=== PATIENT | male | born 1955 | race Caucasian/White ===

== ENCOUNTER 2018-04-25 09:26 | Day surgery (SDC) | payer BC ==
[~2018-04-25] VITALS: Ht 170.2 cm; Wt 72.2 kg
[2018-04-25] VITALS (21 sets, daily range): BP systolic 115–147; BP diastolic 70–90; PULSE 52–86; RESP 7–20; Ht 170.2 cm; Wt 72.2 kg
[~2018-04-25 09:26] MED LIST: BUPIVACAINE 0.25% (MPF) 30 ML INJ INJ ONE; CEFAZOLIN 2 GM/50 ML (PMX) 50 ML IVPB ONE; POLYMYXIN/BACITRACIN 1L IRRIG IRR ONE; SOD CHLORIDE 0.9% 1,000 ML IV SCH
[2018-04-25] MEDS ORDERED: CEFAZOLIN 1 GM INJ ONE ×2 (11:30→14:18)
[2018-04-25] MEDS ORDERED: SEVOFLURANE 15 MIN ONE ×2 (11:30→14:17)
[2018-04-25] MEDS ORDERED: EPHEDrine SULFATE 50 MG/5 ML SYG ONE (11:30)
--- NOTE | 2018-04-25 12:57 | PREAC ---
Date/Time of Note Date/Time of Note DATE: 04/25/18 TIME: 12:56 Anesthesia Eval and Record Evaluation Time Pre-Procedure Interview DATE: 04/25/18 TIME: 12:56 Age 63 Sex male NPO: 8 hrs Preoperative diagnosis right inguinal hernia Planned procedure open right inguinal hernia repair Past Medical History Past Medical History: None Surgery & Anesthesia Issues No known issue Meds Anticoagulation: No Beta Reza within 24 hr: No Reason Beta Reza not given: Pt. not on B-Reza No Active Prescriptions or Reported Meds Current Medications Sodium Chloride 1,000 ml @ 75 mls/hr [id number] IV ; Start 04/25/18 at 07:00 Meds reviewed: Yes Allergies Coded Allergies: No Known Allergy (Unverified , 04/25/18) Allergies Reviewed: Yes Labs/Studies Labs Reviewed: Reviewed by anesthesiologist test: N/A Pre-procedure Exam Last vitals Vital Signs Date Temp Pulse Resp B/P (MAP) Pulse Ox O2 O2 Flow FiO2 Time Delivery Rate 04/25/18 98.6 66 16 133/83 97 Room Air 11:25 (100) Airway: Adequate mouth opening, Adequate thyromental dist Mallampati: Mallampati II Teeth: Normal Lung: Normal Heart: Normal ASA Physical Status ASA physical status: 1 Emergency: None Planned Anesthetic General/MAC: ETT Nerve block: TAP (right) Planned Pain Management Single shot nerve block, Parenteral pain med Pre-operative Attestations Prior to commencing anesthesia and surgery, the patient was re-evaluated, there was verification of: *The patient's identity *The results of appropriate recent lab work and preoperative vital signs *The above evaluation not changing prior to induction *Anesthetic plan, risk benefits, alternative and complications discussed with patient/family; questions answered; patient/family understands, accepts and wishes to proceed. MELISSA GIL MD Apr 25, 2018 12:57
[2018-04-25] MEDS ORDERED: MEPERIDINE 25 MG INJ IV PRN (13:00)
[2018-04-25] MEDS ORDERED: HYDROmorphONE 1 MG/5 ML IV SYRINGE IV PRN ×3 (13:00)
[2018-04-25] MEDS ORDERED: LABETALOL HCL 20MG INJ IV PRN (13:00)
[2018-04-25] MEDS ORDERED: PROCHLORPERAZINE 10 MG INJ IV PRN (13:00)
[2018-04-25] MEDS ORDERED: ONDANSETRON 4 MG INJ IV PRN (13:00)
[2018-04-25] MEDS ORDERED: OXYCODONE/ACETAMINOPHEN (5/325) TAB PO PRN (13:00)
[2018-04-25] MEDS ORDERED: EPHEDrine SULFATE 50 MG/5 ML SYG IV PRN (13:00)
[2018-04-25] MEDS ORDERED: FENTAnyl 50 MCG/ML VIAL IV PRN ×3 (13:00)
[2018-04-25] MEDS ORDERED: hydrALAzine 20 MG INJ IV PRN (13:00)
[2018-04-25] MEDS ORDERED: DIPHENHYDRAMINE 50 MG INJ IV PRN (13:00)
[2018-04-25] MEDS ORDERED: FENTAnyl 50 MCG/ML VIAL ONE (14:02)
[2018-04-25] MEDS ORDERED: LIDOCAINE 2% (SDV) 5 ML INJ ONE (14:02)
[2018-04-25] MEDS ORDERED: PROPOFOL 20 ML ONE (14:02)
[2018-04-25] MEDS ORDERED: MIDAZOLAM 1 MG/ML 2 ML INJ ONE ×2 (14:02→14:15)
[2018-04-25] MEDS ORDERED: SUCCINYLCHOLINE CHLORIDE 100 MG/5 ML SYG IV ONE (14:03)
[2018-04-25] MEDS ORDERED: ROPIVACAINE 0.5 % 30 ML VIAL ONE (14:03)
[2018-04-25] MEDS ORDERED: ROCURONIUM 50 MG INJ ONE (14:03)
[2018-04-25] MEDS ORDERED: FAMOTIDINE 20 MG INJ ONE (14:18)
[2018-04-25] MEDS ORDERED: ONDANSETRON 4 MG INJ ONE (14:18)
[2018-04-25] MEDS ORDERED: DEXAMETHASONE 4 MG/ML 5 ML INJ ONE (14:18)
[2018-04-25] MEDS ORDERED: HYDROmorphONE 2 MG/ML SYG ONE (14:39)
[2018-04-25] MEDS ORDERED: POLYMYXIN/BACITRACIN 1L IRRIG IRR ONE (14:42)
[2018-04-25] MEDS ORDERED: NEOSTIGMINE 10 MG INJ ONE (14:58)
[2018-04-25] MEDS ORDERED: GLYCOPYRROLATE 0.4 MG INJ ONE ×2 (14:58→15:04)
[2018-04-25] MEDS ORDERED: SUGAMMADEX SODIUM 200 MG/2 ML VIAL IV ONE (15:02)
--- NOTE | 2018-04-25 15:08 | OPR ---
Date/Time of Note Date/Time of Note DATE: 04/25/18 TIME: 15:04 Operative Report Procedure Date: Apr 25, 2018 Preoperative Diagnosis right incarcerated inguinal hernia repair with large ultrapro plug hernia system mesh Postoperative Diagnosis same Operation/Procedure Performed 1. open right incarcerated inguinal hernia repair with large ultrapro plug mesh 2. 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 He requires surgical repair. Risks alternatives benefits and percent were discussed with the patient. Potential complications including but not limited to bleeding infection recurrence of hernia due to its large size migration of the mesh and mesh infection were discussed the patient also discussed were issues of pain that can occur after the skin surgeries. Patient expressed understanding and consents to the operation. Procedure Description Patient is taken to the OR and prepped and draped in usual sterile fashion. Surgical time was performed. IV antibiotics were given. Right inguinal oblique incision was made at the 10 blade. Dissection with cautery was carried onto the external oblique fascia. The external fascia is open with a 15 blade. This incision extended medial fairly lateral sparely with Metzenbaum scissors. Cord structures identified and encircled with a Howard drain. Very large incarcerated indirect hernia is identified lysis of adhesions performed and this was manually reduced. Further inspection and reflection of the testicle into the groin showed a very large hydrocele associated with the inguinal hernia. The hydrocele was opened up and the hydrocele sac was then excised. The remnant of the sac was then marsupialized with interrupted 3-0 Vicryl. This was sent for specimen. Additionally there was a cord lipoma in the inguinal region which was also excised and sent for specimen. The very large hernia sac in the inguinal region was then identified and this was suture ligated with 0 Vicryl suture. The excess hernia sac was sent for specimen. The large defect was then bolstered with the disc portion of the ultra pro hernia system mesh. This disc was secured in place with a running 0 Prolene from the pubic tubercle along the shelving edge of the inguinal ligament. Superiorly the disc is secured to the internal oblique with interrupted 3-0 Vicryl. [place] mesh is secured in a similar fashion with a running 0 Prolene from the pubic tubercle along the shelving edge of the inguinal ligament. Superiorly the mesh was secured to enter oblique with interrupted 0 Vicryl. Strep screen and reapproximate around the cord structures with interrupted 0 Prolene to recreate the inguinal ring. Externally fascia is closed with running 3-0 Vicryl. Arturo's fascia was closed with interrupted 3-0 Vicryl. Skin is closed using Sg GALVIN Apr 25, 2018 15:08
--- NOTE | 2018-04-25 15:22 | PAC ---
Date/Time of Note Date/Time of Note DATE: 04/25/18 TIME: 15:22 Post-Anesthesia Notes Post-Anesthesia Note Last documented vital signs Vital Signs Date Temp Pulse Resp B/P (MAP) Pulse Ox O2 O2 Flow FiO2 Time Delivery Rate 04/25/18 98.6 66 16 133/83 97 Room Air 11:25 (100) Activity: WNL Respiratory function: WNL Cardiovascular function: WNL Mental status: Baseline Pain reasonably controlled: Yes Hydration appropriate: Yes Nausea/Vomiting absent: Yes Comments BP: 126/74 HR: 60 RR: 14 T: 98 SaO2: 100% MELISSA GIL MD Apr 25, 2018 15:22
[2018-04-25] MEDS ORDERED: HYDROCODONE/APAP (5/325) TAB PO ONE (15:30)
== END 2018-04-25 18:09 | disposition home or self-care (01) ==
LOC: SDS 09:26
PROVIDERS: ATTEND Surgery
DX: K40.30 Unilateral inguinal hernia, with obstruction, without gangrene, not specified as recurrent (principal)
CPT/HCPCS: 49507; J0690; J1100; J1170; J2175; J2250; J2405; J2710; J2795; J3010; Z7610; 88304; C1781